=== PATIENT | female | born 1945 ===

== ENCOUNTER 2020-06-27 18:32 | Emergency (ER) | payer OTHER ==
[~2020-06-27] VITALS: Ht 167.6 cm; Wt 52.2 kg
[2020-06-27] MEDS ORDERED: JANUMET 50-5001 EACH (18:43)
[2020-06-27] MEDS ORDERED: NORVASC5 MG (18:43)
[2020-06-27] MEDS ORDERED: TOPROL XL25 M1 (18:43)
[2020-06-27] MEDS ORDERED: PRILOSEC OTC20 MG (18:43)
[2020-06-27] MEDS ORDERED: SYNTHROID88 MCG (18:43)
[2020-06-27] MEDS ORDERED: WELLBUTRIN SR150 MG (18:44)
[2020-06-27] MEDS ORDERED: COZAAR100 MG (18:44)
== END 2020-06-27 22:31 | disposition home or self-care (01) ==
LOC: ER 18:32
DX: K29.70 Gastritis, unspecified, without bleeding (principal); K57.90 Diverticulosis of intestine, part unspecified, without perforation or abscess without bleeding